=== PATIENT | female | born 1960 | race African-American/Black ===

== ENCOUNTER 2022-02-05 09:36 | Emergency (ER) | payer MEDICAID ==
[~2022-02-05] VITALS: Ht 157.5 cm; Wt 113.0 kg
[2022-02-05] MEDS ORDERED: ONDANSETRON 4MG ODT PO ONE (10:00)
[2022-02-05] MEDS ORDERED: HYDROCODONE/ACETAMINOPHEN 5/325MG TABLET PO ONE (10:00)
[2022-02-05] MEDS ORDERED: HYDR-4001 MT (10:49)
[2022-02-05 11:00] VITALS: BP 158/69
== END 2022-02-05 11:03 | disposition home or self-care (01) ==
LOC: ER 09:36
DX: S89.81XA Other specified injuries of right lower leg, initial encounter (principal); M25.561 Pain in right knee; I10 Essential (primary) hypertension; Z85.3 Personal history of malignant neoplasm of breast; W18.39XA Other fall on same level, initial encounter; Y93.89 Activity, other specified; Y92.89 Other specified places as the place of occurrence of the external cause; Y99.8 Other external cause status; Z85.6 Personal history of leukemia
CPT/HCPCS: 73502; 73562; 73590; 93971; 99284; Q0162

== ENCOUNTER 2022-07-15 12:31 | Emergency (ER) | payer MEDICAID ==
[~2022-07-15] VITALS: Ht 172.7 cm; Wt 98.0 kg
[~2022-07-15 12:31] MED LIST: HYDR-4001 MT
[2022-07-15 13:56] LABS: BASOPHILS % 0.5 % (0.0-2.0); EOSINOPHILS % 1.9 % (0.0-5.0); HEMATOCRIT. 34.4 % (36.0-48.0); HEMOGLOBIN. 11.2 g/dL (12.0-16.0); LYMPHOCYTES % 17.6 % (20.0-50.0); MEAN CORPUSCULAR HEMOGLOBIN 29.1 pg (28.0-32.0); MEAN CORPUSCULAR VOLUME 89.3 fL (81.0-99.0); MEAN PLATELET VOLUME 8.5 fl (7.4-10.4); MONOCYTES % 11.4 % (2.0-8.0); NEUTROPHILS % 68.6 % (40.0-76.0); PLATELET 246 x1000/uL (130-400); RED BLOOD CELL COUNT 3.85 mill/uL (4.2-5.4); RED CELL DISTRIBUTION WIDTH 15.5 % (11.6-14.6)
[2022-07-15 14:02] LABS: CHLORIDE 102 mEq/L (98-107)
[2022-07-15 14:20] LABS: ETHANOL BLOOD < 10 mg/dL
[2022-07-15 15:46] LABS: *AMPHETAMINES SCREEN URINE NEGATIVE (NEGATIVE); *BARBITURATES SCREEN URINE NEGATIVE (NEGATIVE); *BENZODIAZEPINES SCREEN URINE NEGATIVE (NEGATIVE); *COCAINE SCREEN URINE NEGATIVE (NEGATIVE); CANNABINOID URINE SCREEN NEGATIVE (NEGATIVE); METHADONE URINE SCREEN NEGATIVE (NEGATIVE); OPIATES URINE SCREEN PRESUMTIVE POSITIVE (NEGATIVE); PHENCYCLIDINE URINE SCREEN NEGATIVE (NEGATIVE)
[2022-07-15] MEDS ORDERED: ERGO1TAB28 MT (15:51)
[2022-07-15] MEDS ORDERED: HYDROCODONE/ACETAMINOPHEN 5/325MG TABLET PO ONE (16:00)
[2022-07-15 16:12] VITALS: BP 188/97
== END 2022-07-15 16:30 | disposition home or self-care (01) ==
LOC: ER 12:59
DX: R03.0 Elevated blood-pressure reading, without diagnosis of hypertension (principal); D64.9 Anemia, unspecified; Z85.3 Personal history of malignant neoplasm of breast; Z87.898 Personal history of other specified conditions
CPT/HCPCS: 36415; 71045; 71275; 80053; 80305; 80320; 83880; 84484; 85025; 99285; G0480

== ENCOUNTER 2024-05-07 20:27 | Emergency (ER) | payer OTHER, MEDICAID ==
[~2024-05-07] VITALS: Ht 167.6 cm; Wt 55.0 kg
[~2024-05-07 20:27] MED LIST changes: +ERGO1TAB28 MT
[2024-05-07 20:49] VITALS: O2SAT 99
[2024-05-08 01:59] LABS: BASOPHILS % 0.9 % (0.0-2.0); EOSINOPHILS % 2.7 % (0.0-5.0); HEMATOCRIT. 34.1 % (36.0-48.0); HEMOGLOBIN. 11.4 g/dL (12.0-16.0); LYMPHOCYTES % 20.8 % (20.0-50.0); MEAN CORPUSCULAR HEMOGLOBIN 28.3 pg (28.0-32.0); MEAN CORPUSCULAR HGB CONC 33.5 g/dL (31.0-37.0); MEAN CORPUSCULAR VOLUME 84.5 fL (81.0-99.0); MEAN PLATELET VOLUME 8.7 fl (7.4-10.4); MONOCYTES % 9.9 % (2.0-8.0); NEUTROPHILS % 65.7 % (40.0-76.0); PLATELET 296 x1000/uL (130-400); RED BLOOD CELL COUNT 4.03 mill/uL (4.2-5.4); RED CELL DISTRIBUTION WIDTH 18.5 % (11.6-14.6); WHITE BLOOD COUNT 10.3 x1000/uL (4.5-11.0)
[2024-05-08 02:09] LABS: CHLORIDE 104 mEq/L (98-107); SODIUM 135 mEq/L (136-145)
[2024-05-08 02:10] LABS: CALCIUM 12.2 mg/dL (8.7-10.4); CARBON DIOXIDE 25 mEq/L (21-32)
[2024-05-08 02:15] LABS: CREATININE 0.9 mg/dL (0.6-1.0); GLUCOSE 86 mg/dL (70-105); UREA NITROGEN BLOOD 12 mg/dL (9-23)
[2024-05-08 02:17] LABS: ALANINE AMINOTRANSFERASE 14 IU/L (10-49); ALBUMIN 4.4 g/dL (3.2-4.8); ASPARTATE AMINOTRANSFERASE 23 IU/L (<34); BILIRUBIN TOTAL 0.9 mg/dL (0.1-1.0); PROTEIN TOTAL 6.9 g/dL (6.0-8.3)
[2024-05-08 02:37] LABS: INR 3.4; PARTIAL THROMBOPLASTIN TIME 41.6 sec (23.4-31.0); PROTHROMBIN TIME 34.9 sec (9.6-11.0)
[2024-05-08] MEDS ORDERED: FEO PR (05:00)
[2024-05-08] MEDS ORDERED: POLY119P2 MT (05:00)
[2024-05-08] MEDS: GLYCERIN ADULT SUPPOSITORY PR ONE (05:15)
[2024-05-08] MEDS: MINERAL OIL ENEMA 133ML PR ONE (05:45)
[2024-05-08] MEDS ORDERED: IOHEXOL-300 100 ML BOTTLE ONE (06:09)
[2024-05-08 09:37] VITALS: BP 139/82; PULSE 87; RESP 17; TEMP 36.61404; O2SAT 99
== END 2024-05-08 10:00 | disposition home or self-care (01) ==
LOC: ER 20:27 → CANBEDREQ 05-08 07:36 → ER 05-08 10:00
DX: K59.00 Constipation, unspecified (principal); M79.89 Other specified soft tissue disorders; I10 Essential (primary) hypertension; J45.909 Unspecified asthma, uncomplicated; Z88.8 Allergy status to other drugs, medicaments and biological substances; Z98.890 Other specified postprocedural states; Z86.73 Personal history of transient ischemic attack (TIA), and cerebral infarction without residual deficits
CPT/HCPCS: 99285; 93971; 80053; 81001; 83690; 85025; 85610; 85730; 36415; 74177; Q9967

== ENCOUNTER 2025-07-19 10:44 | Emergency (ER) | payer OTHER, MEDICAID ==
[~2025-07-19] VITALS: Ht 160 cm; Wt 51.0 kg
[~2025-07-19 10:44] MED LIST changes: +FEO PR; +POLY119P2 MT
[2025-07-19 10:45] VITALS: O2SAT 99
[2025-07-19] MEDS: ACETAMINOPHEN 325MG TABLET PO ONE (11:35)
[2025-07-19] MEDS: OXYCODONE HCL 10MG TABLET PO ONE (13:07)
[2025-07-19 15:01] VITALS: BP 121/75; PULSE 66; RESP 16; TEMP 37; O2SAT 99
== END 2025-07-19 15:19 | disposition home or self-care (01) ==
LOC: ER 10:57
DX: R51.9 Headache, unspecified (principal); G31.9 Degenerative disease of nervous system, unspecified; I10 Essential (primary) hypertension; I67.82 Cerebral ischemia; Z86.73 Personal history of transient ischemic attack (TIA), and cerebral infarction without residual deficits; Z88.5 Allergy status to narcotic agent; Z95.0 Presence of cardiac pacemaker
CPT/HCPCS: 99284